=== PATIENT | female | born 1985 | race Caucasian/White ===

== ENCOUNTER 2024-04-04 16:08 | Emergency (ER) | payer OTHER ==
[~2024-04-04] VITALS: Ht 157.5 cm; Wt 81.6 kg
[2024-04-04 16:31] VITALS: BP 91/46; PULSE 49; RESP 18; TEMP 98.4; O2SAT 100
[2024-04-04] MEDS: ONDANSETRON 4 MG/2 ML VIAL IVP ONE (17:31)
[2024-04-04] MEDS: MORPHINE SULFATE 4 MG/ML SYR IVP ONE (17:36)
[2024-04-04] MEDS: KETOROLAC 30 MG/ML VIAL IVP ONE (17:38)
[2024-04-04 17:43] LABS: APPEARANCE,URINE CLEAR (CLEAR); BILIRUBIN,URINE NEGATIVE (NEGATIVE); BLOOD, URINE NEGATIVE (NEGATIVE); COLOR,URINE YELLOW (YELLOW); LEUKOCYTE ESTERASE ,URINE NEGATIVE (NEGATIVE); NITRITE, URINE NEGATIVE (NEGATIVE); PROTEIN,URINE NEGATIVE (NEGATIVE); UGLUCOSE NEGATIVE (NEGATIVE); UROBILINOGEN,URINE 0.2 EU/dL (0.2 - 1)
[2024-04-04 17:45] VITALS: BP 106/66; PULSE 50; RESP 16; O2SAT 98
[2024-04-04 17:45] LABS: BASOPHILS # (AUTO) 0.1 K/uL (0.00-0.22); BASOPHILS % (AUTO) 0.5 % (0.0-2.0); EOSINOPHILS # (AUTO) 0.1 K/uL (0-0.4); EOSINOPHILS % (AUTO) 0.7 % (0.0-4.0); HEMATOCRIT 33.9 % (36-48); HEMOGLOBIN 11.2 g/dL (12.0-16.0); LYMPHOCYTES # (AUTO) 1.7 K/uL (2.5-16.5); LYMPHOCYTES % (AUTO) 14.1 % (20.5-51.1); MEAN CORPUSCULAR HEMOGLOBIN 27 pg (27-31); MEAN CORPUSCULAR HGB CONC 33 g/dL (33-37); MONOCYTES # (AUTO) 0.8 K/uL (0.8-1.0); MONOCYTES % (AUTO) 6.7 % (1.7-9.3); NEUTROPHILS # (AUTO) 9.5 K/uL (1.8-7.7); PLATELET COUNT (AUTO) 306 K/uL (140-450); RED BLOOD CELL COUNT(AUTO) 4.18 MIL/uL (4.20-5.40); RED CELL DISTRIBUTION WIDTH 14.3 % (11.6-13.7); WHITE BLOOD COUNT (AUTO) 12.2 K/uL (4.8-10.8)
[2024-04-04 17:57] LABS: ANION GAP 14.2 (8-16); CALCIUM 8.7 mg/dL (8.5-10.1); CARBON DIOXIDE 25.1 mmol/L (21-32); CREATININE 0.6 mg/dL (0.6-1.3); POTASSIUM 3.3 mmol/L (3.5-5.1)
[2024-04-04 18:04] LABS: ALBUMIN 3.8 g/dL (3.4-5.0); BILIRUBIN,DIRECT 0.1 mg/dL (0.0-0.3); TOTAL BILIRUBIN 0.4 mg/dL (0.0-1.0); TOTAL PROTEIN, SERUM 7.5 g/dL (6.4-8.2)
[2024-04-04] MEDS ORDERED: PIPERACILLIN/TAZOBACTAM 3.375 GM VIAL IV ONE ×2 (19:17→19:47)
[2024-04-04] MEDS ORDERED: METR-435 PO (19:43)
[2024-04-04] MEDS: PIPERACILLIN/TAZOBACTAM 3.375 GM in DEXTROSE 5% 50 ML IV ONE (20:01)
== END 2024-04-04 20:15 | disposition home or self-care (01) ==
LOC: MED 16:08
DX: K81.0 Acute cholecystitis (principal); Z79.899 Other long term (current) drug therapy
CPT/HCPCS: 36415; 76705; 80048; 80076; 81003; 81025; 83690; 84703; 85025; 87040; 96365; 96375; 99285; J1885; J2270; J2405; J2543; Q0092